=== PATIENT | female | born 1970 | race Caucasian/White ===

== ENCOUNTER 2022-10-29 19:08 | Emergency (ER) | payer OTHER, SELFPAY ==
[2022-10-29 19:32] VITALS: BP 120/80; PULSE 67; RESP 16; TEMP 36.8; O2SAT 98; BMI 25.8
--- NOTE | 2022-10-29 19:39 | W.ED.EXTPRO ---
HPI - Extremity Problem General: Chief complaint: Extremity Injury, Upper Stated complaint: Rt arm Swelling Time Seen by Provider: 10/29/22 19:39 History of Present Illness: 51-year-old female comes in today with complaints of swelling and discoloration to the left arm. Patient reports that she had went to sleep and when she woke up around 1530, she had numbness in her arm and noticed significant swelling and discoloration. Patient reports history of nicotine and alcohol use. Patient denies any chronic medical problems. Patient reports no routine medications. Associated symptoms: Deny chest pain Review of Systems General: Reports: 10 or more systems reviewed and unremarkable except in HPI and below ENMT: Denies: throat pain Card: Denies: chest pain Resp: Denies: dyspnea Musc: Reports: extremity pain and extremity swelling Physical Exam Const: COMMON NORMALS: alert HENMT: COMMON NORMALS: atraumatic HEAD & SCALP: atraumatic Neck/C-Spine: COMMON NORMALS: full ROM Chest: COMMONS NORMALS: normal palpation of entire chest wall Neuro: SENSORIUM/ORIENTATION: Yes alert Course Vital Signs: Vital signs: Vital Signs Temperature 98.3 F 10/29/22 19:32 Pulse Rate 67 10/29/22 19:32 Respiratory Rate 16 10/29/22 19:32 Blood Pressure 120/80 10/29/22 19:32 Pulse Oximetry 98 10/29/22 19:32 Oxygen Delivery Me thod Room Air 10/29/22 19:32 MDM - Extremity (Nontraumatic) Medical Decision Making 51-year-old female comes in today after awakening from a nap and noticing increased swelling and discomfort to the right arm. On exam patient has good strong pulses at the radial pulse and cap refill is intact. Patient does have noticeable swelling and discoloration. Patient has normal range of motion without aggravation of pain. Differential diagnosis includes not limited to lymphedema, DVT, Buerger's disease. Ultrasound of the upper extremity noted a DVT in the axillary vein. CBC, CMP, hCG were all within normal limits or negative. Reviewed exam with patient and recommendations for treatment and follow-up. Patient reported understanding and agreed to plan. Lab Data 10/29/22 20:05 10/29/22 20:05 Radiology Impressions Venous Duplex 10/29/22 19:42 IMPRESSION: Right upper extremity deep venous thrombosis, as described above. ADDENDUM: 10/29/222122 ADDENDUM: THIS REPORT CONTAINS FINDINGS THAT MAY BE CRITICAL TO PATIENT CARE. The findings were verbally communicated via telephone conference with CARLOS EDUARDO PRESTON at 9:21 PM CDT on 10/29/2022. The findings were acknowledged and understood. Laboratory Results WBC 7.0 10^3/uL (4.0-10.0) 10/29/22 20:05 RBC 4.30 10^6/uL (4.1-5.3) 10/29/22 20:05 Hgb 13.2 g/dL (11.5-15.3) 10/29/22 20:05 Hct 40.2 % (37.0-47.0) 10/29/22 20:05 MCV 93.5 fl (81-99) 10/29/22 20:05 MCH 30.7 pg (28.0-34.0) 10/29/22 20:05 MCHC 32.8 g/dL (30.0-36.0) 10/29/22 20:05 RDW 12.7 % (12.1-15.1) 10/29/22 20:05 Plt Count 146 10^3/cmm (130-400) 10/29/22 20:05 MPV 11.1 fL (7.4-10.4) H 10/29/22 20:05 Neut % (Auto) 68.0 % 10/29/22 20:05 Lymph % (Auto) 21.9 % 10/29/22 20:05 Phillips % (Auto) 7.2 % 10/29/22 20:05 Eos % (Auto) 1.9 % 10/29/22 20:05 Baso % (Auto) 0.7 % 10/29/22 20:05 Neut # (Auto) 4.76 10^3/uL (1.8-7.7) 10/29/22 20:05 Lymph # (Auto) 1.5 10^3/uL (0.8-4.8) 10/29/22 20:05 Phillips # (Auto) 0.5 10^3/uL (0.2-0.9) 10/29/22 20:05 Eos # (Auto) 0.1 10^3/uL (0.0-0.8) 10/29/22 20:05 Baso # (Auto) 0.1 10^3/uL (0.0-0.1) 10/29/22 20:05 Nucleated RBC % (auto) 0 % 10/29/22 20:05 Nucleated RBCs # 0.0 /100WBC 10/29/22 20:05 ESR 4 mm/hr (0-15) 10/29/22 20:05 PT 12.20 SECONDS (12.1-14.9) 10/29/22 20:05 INR 0.88 (0.8-1.2) 10/29/22 20:05 APTT 21.8 SECONDS (23.9-36.7) L 10/29/22 20:05 Sodium 137 mmol/L (136-145) 10/29/22 20:05 Potassium 4.1 mmol/L (3.5-5.1) 10/29/22 20:05 Chloride 104 mmol/L (98-107) 10/29/22 20:05 Carbon Dioxide 21 mmol/L (22-29) L 10/29/22 20:05 Anion Gap 16.1 (5-19) 10/29/22 20:05 BUN 7 mg/dL (6-20) 10/29/22 20:05 Creatinine 0.5 mg/dL (0.5-0.9) 10/29/22 20:05 GFR Calculation 131.1 mL/min (90-130) H 10/29/22 20:05 Glucose 75 mg/dL (65-115) 10/29/22 20:05 Calculated Osmolality 281 mOsm/kg (285-295) L 10/29/22 20:05 Calcium 8.8 mg/dL (8.5-10.5) 10/29/22 20:05 Total Bilirubin 0.2 mg/dL (0.15-1.2) 10/29/22 20:05 AST 22 U/L (0-32) 10/29/22 20:05 ALT 25 U/L (0-33) 10/29/22 20:05 Alkaline Phosphatase 82 U/L (35-105) 10/29/22 20:05 C-Reactive Protein 3.0 mg/L (0.0-4.9) 10/29/22 20:05 Total Protein 6.9 g/dL (6.6-8.7) 10/29/22 20:05 Albumin 4.1 g/dL (3.5-5.2) 10/29/22 20:05 Globulin 2.8 g/dL (1.3-4.6) 10/29/22 20:05 HCG, Qual Negative (Negative) 10/29/22 20:05 Discharge Plan Discharge Patient Disposition: Home Clinical Impression: DVT of axillary vein, acute right Condition: Stable Prescriptions: New Eliquis DVT-PE Treat 30D Start 5 mg (74 tabs) tablets,dose pack See Rx Instructions .ROUTE .COMPLEX Qty: 74 0RF Rx Instructions: orally per package directions Discharge Orders: Discharge ED (Routine); Ordered 10/29/22 Ordered By: Carlos Eduardo Preston Discharge Diet: Usual diet Discharge Activity: Increase activity as tolerated Patient Instructions: Apixaban (By mouth) (Eliquis), Deep Vein Thrombosis (ED) Activity Restrictions/Additional Instructions: Home and rest. Drink plenty of water. Take medications as directed. Follow-up with primary care in 1 week. Return to ED for worsening symptoms such as severe chest pain, shortness of breath, or new concerns. Coding Level of Care Code ED [employer] for Nohemy Bedolla
--- NOTE | 2022-10-29 19:42 | USR_ITS ---
PROCEDURE INFORMATION: Exam: US Duplex Right Upper Extremity Veins, Limited Exam date and time: 10/29/2022 8:13 PM Age: 51 years old Clinical indication: Edema, localized; Upper extremity, right; Patient HX: Patient fell asleep on her right arm and awoke to numbness, discoloration, and edema of the right upper extremity. ; Additional info: Arm discoloration and swelling TECHNIQUE: Imaging protocol: Real-time duplex ultrasound of the right Upper Extremity with 2-D muniz scale, color Doppler flow and spectral waveform analysis with image documentation. Limited exam focused on the right upper extremity veins. COMPARISON: No relevant prior studies available. FINDINGS: Right deep veins: Hypoechoic, occlusive thrombus in the subclavian and axillary veins. The internal jugular, brachial, radial and ulnar veins are patent without thrombus. Right superficial veins: Hypoechoic thrombus in the proximal basilic vein. Visualized cephalic vein patent without thrombus. Soft tissues: Unremarkable. US/[place] [id number] IMPRESSION: Right upper extremity deep venous thrombosis, as described above.
[2022-10-29 20:41] LABS: Basophils # 0.1 10^3/uL (0.0-0.1); Basophils % 0.7 %; Eosinophils # 0.1 10^3/uL (0.0-0.8); Eosinophils % 1.9 %; Hematocrit 40.2 % (37.0-47.0); Hemoglobin 13.2 g/dL (11.5-15.3); Lymphocytes # 1.5 10^3/uL (0.8-4.8); Lymphocytes % 21.9 %; Mean Corpuscular HGB Conc 32.8 g/dL (30.0-36.0); Mean Corpuscular Hemoglobin 30.7 pg (28.0-34.0); Mean Corpuscular Volume 93.5 fl (81-99); Mean Platelet Volume 11.1 fL (7.4-10.4); Monocytes # 0.5 10^3/uL (0.2-0.9); Monocytes % 7.2 %; Neutrophils # 4.76 10^3/uL (1.8-7.7); Nucleated Red Blood Cells % 0 %; Platelet Count 146 10^3/cmm (130-400); Red Cell Distribution Width 12.7 % (12.1-15.1)
[2022-10-29 20:42] LABS: INR 0.88 (0.8-1.2); Partial Thromboplastin Time 21.8 SECONDS (23.9-36.7)
[2022-10-29 20:48] LABS: Alanine Aminotransferase 25 U/L (0-33); Albumin Level 4.1 g/dL (3.5-5.2); Alkaline Phosphatase 82 U/L (35-105); Anion Gap 16.1 (5-19); Aspartate Amino Transferase 22 U/L (0-32); Blood Urea Nitrogen 7 mg/dL (6-20); Calcium 8.8 mg/dL (8.5-10.5); Carbon Dioxide 21 mmol/L (22-29); Chloride 104 mmol/L (98-107); Globulin 2.8 g/dL (1.3-4.6); Glomerular Filtration Rate 131.1 mL/min (90-130); Glucose 75 mg/dL (65-115); Osmolality Calculated 281 mOsm/kg (285-295); Potassium 4.1 mmol/L (3.5-5.1); Sodium 137 mmol/L (136-145); Total Bilirubin 0.2 mg/dL (0.15-1.2); Total Protein 6.9 g/dL (6.6-8.7)
[2022-10-29 20:49] LABS: HCG, Serum Qual Negative (Negative)
[2022-10-29 20:57] LABS: Erythrocyte Sedimentation Rate 4 mm/hr (0-15)
[2022-10-29] MEDS: apixaban 5 mg Tablet 10 MG PO (21:21)
--- NOTE | 2022-11-02 11:33 | DCPLANNER ---
technical product manager called patient due to no primary care physician - no answer at this time.
== END 2022-10-29 21:26 | disposition home or self-care (01) ==
PROVIDERS: Emergency Provider Nurse Practitioner Family
DX: I82.A11 Acute embolism and thrombosis of right axillary vein (principal)
CPT/HCPCS: 36415; 80053; 84703; 85025; 85610; 85651; 85730; 86140; 93971; 99284